=== PATIENT | male | born 1960 | race Caucasian/White ===

== ENCOUNTER → 2024-11-12 | Outpatient (REF) | payer BC ==
[~2024-11-12] MED LIST: ACCOLATE10 MG PO; ASMANEX220 MC2 INH; ASPIRIN CHEW81 MG PO; BENTYL10 MG PO; CARAFATE1 GM/10 ML PO; CO Q-1010 MG PO; DIOVAN80 MG PO; FINASTERIDE5 MG PO; FLOMAX0.4 MG PO; GLUCOPHAGE500 MG PO; GLUCOVANCE 5-51 EACH PO; HYDROCHLOROTH12.5 MG PO; HYDROCHLOROTHIA25 MG PO; LEVAQUIN250 MG PO; LINZESS PO; LIPITOR10 MG PO; MAXAIR AUTOHALE14 GM INH; NORCO 10-325 T1 EACH PO; PANTOPRAZOLE SO40 MG PO; PEPCID PO; PREDNISONE20 MG PO; PRILOSEC PO; PYRIDIUM200 MG PO; STRATTERA80 MG PO; TOPIRAMATE25 MG PO; VENLAFAXINE HC150 M1 PO; VERAPAMIL ER180 MG PO; VICODIN 5-5001 EACH PO; VITAMIN D250000 UNIT PO; ZINC50 M2 PO
== END ==
LOC: US 14:35
PROVIDERS: ATTEND Urology
DX: N28.1 Cyst of kidney, acquired (principal)
CPT/HCPCS: 76770; 76857

== ENCOUNTER → 2024-12-30 | Day surgery (SDC) | payer BC ==
[2024-12-26 11:22] LABS: BASOPHILS % 0.5 % (0.0-1.0); EOSINOPHILS % 1.8 % (0.0-6.0); LYMPHOCYTES % 19.4 % (18.0-39.1); MONOCYTES % 7.3 % (4.4-11.3); NEUTROPHILS % 70.8 % (38.7-80.0); RED CELL DISTRIBUTION WIDTH 13.2 % (11.7-14.4)
[2024-12-26 11:56] LABS: EST GLOMERULAR FILTRATION RATE 66.0 ML/MIN (>=60)
[~2024-12-30] MED LIST changes: +ACETAMINOPHEN 1000 MG/100 ML 100 ML IV ONE; +ASPIRIN EC81 MG PO; +CELEBREX200 MG PO; +DEXAMETHASONE SOD PHOS INJ 4 MG/ML SDV ONE; +FENTANYL CITRATE/PF 100MCG/2 ML INJ ONE; +FEROSUL325 MG PO; +JARDIANCE25 MG PO; +KRILL OIL 1,001 EACH PO; +LEXAPRO20 MG PO; +LIDOCAINE HCL 2% LOCAL INJ 5 ML SDV VIAL INJ ONE; +LUTEIN6 MG PO; +MEMANTINE HCL10 MG PO; +METFORMIN HCL500 M2 PO; +MULTI-VITAMIN1 EACH PO; +ONDANSETRON HCL INJ 2MG/ML 2ML 2 MG/ML VIAL ONE; +PIOGLITAZONE30 MG PO; +POTASSIUM CHLO20 ME1 PO; +PROPOFOL IV EMULSION 10 MG/ML 20 ML VIAL ONE; +RESTASIS1 EACH OU; +SEVOFLURANE INHAL SOLN 250 ML PEN BTL ONE; +TURMERIC500 M2 PO; +WEGOVY0.25 MG/0. SC; +ZETIA10 MG PO
[2024-12-30] MEDS: PHENAZOPYRIDINE HCL 100 MG TAB ONE (08:35)
[2024-12-30] MEDS: CEFTRIAXONE 1 GM VIAL ONE (08:56)
[2024-12-30] MEDS: SODIUM CHLORIDE 0.9% 1000ML 1,000 ML ONE (08:56)
[2024-12-30 09:14] VITALS: TEMP 97.6
[2024-12-30 10:45] VITALS: BP 138/70; PULSE 86; RESP 16; O2SAT 97
[2024-12-30] MEDS: HYDROCODONE/APAP 5MG-325MG TAB ONE (10:55)
== END | disposition home or self-care (01) ==
LOC: OR 05:19
PROVIDERS: ATTEND Urology
DX: N40.3 Nodular prostate with lower urinary tract symptoms (principal); N13.8 Other obstructive and reflux uropathy; N35.812 Other bulbous urethral stricture, male; N32.89 Other specified disorders of bladder; Z98.890 Other specified postprocedural states; G47.33 Obstructive sleep apnea (adult) (pediatric); E11.9 Type 2 diabetes mellitus without complications; I10 Essential (primary) hypertension; E78.5 Hyperlipidemia, unspecified; J45.909 Unspecified asthma, uncomplicated; K21.9 Gastro-esophageal reflux disease without esophagitis; K76.0 Fatty (change of) liver, not elsewhere classified; M26.609 Unspecified temporomandibular joint disorder, unspecified side; F41.9 Anxiety disorder, unspecified; F32.A Depression, unspecified; Z88.8 Allergy status to other drugs, medicaments and biological substances; Z01.810 Encounter for preprocedural cardiovascular examination; Z01.812 Encounter for preprocedural laboratory examination; Z01.818 Encounter for other preprocedural examination; Z79.82 Long term (current) use of aspirin; Z79.84 Long term (current) use of oral hypoglycemic drugs; Z79.85 Long-term (current) use of injectable non-insulin antidiabetic drugs; Z79.51 Long term (current) use of inhaled steroids; Z79.899 Other long term (current) drug therapy; Z87.01 Personal history of pneumonia (recurrent)
CPT/HCPCS: 36415 ×2; 52281; 71046; 74420; 80048; 82948; 85025; 87086; 93005; C1758; J0131; J0696; J1100; J2003; J2405; J2704; J3010; J7030